=== PATIENT | female | born 1990 | race Caucasian/White ===

== ENCOUNTER 2017-01-19 10:11 | Emergency (ER) | payer MEDICAID | END 2017-01-19 12:56 | disposition home or self-care (01) | LOC: D.ER 10:11 | DX: S83.102A Unspecified subluxation of left knee, initial encounter (principal); X58.XXXA Exposure to other specified factors, initial encounter; Y93.89 Activity, other specified; Y92.019 Unspecified place in single-family (private) house as the place of occurrence of the external cause; M25.562 Pain in left knee ==

== ENCOUNTER 2017-03-26 21:19 | Emergency (ER) | payer MEDICAID | END 2017-03-26 22:20 | disposition home or self-care (01) | LOC: D.ER 21:19 | DX: S71.111A Laceration without foreign body, right thigh, initial encounter (principal); W26.8XXA Contact with other sharp object(s), not elsewhere classified, initial encounter; Y93.89 Activity, other specified; Y92.89 Other specified places as the place of occurrence of the external cause ==